=== PATIENT | male | born 1955 | race Caucasian/White ===

== ENCOUNTER 2016-12-11 19:04 | Emergency (ER) | payer BC ==
[~2016-12-11] VITALS: Ht 193 cm; Wt 120.2 kg
--- NOTE | 2016-12-11 19:56 | ED.ADGEN ---
Adult General HPI HPI Patient is a 61-year-old man, history of hypertension, who presents the emergency department with multiple complaints. Patient states that he awoke early this morning, with dental pain, that began his lower jaw, on the left side and radiate up to his left upper jaw, he states he's had pain like this before, does have poor dentition. He states however that previously he had dental pain like this, was told "it's when they diagnosed with high blood pressure". He states that later on during the day he began experiencing "twinging chest pains", and a feeling of fluttering with mild shortness of breath which prompted him to come to the ED for evaluation. He states the symptoms for last for a few moments at a time, and are worse if he moves quickly. States the pain did seem to radiate into his biceps, he states that pain is gone now as well. He denies any pain currently, any lightheadedness or dizziness, nausea vomiting, swelling extremities, recent travel or surgery, history of DVT or PE. He states is compliant with his blood pressure medications and did take aspirin before coming to the ED. Patient has a strong family history of cardiac disease, including MD and CABG performed on his father in his late 50s, and also in his brother, who had a heart attack at age 48. Patient does not smoke, states that he has occasional alcohol use, denies any drugs, injuries, similar symptoms. He'll be stress test performed about 15 years ago, and a stress test performed about 10 years ago, no issues at that time. 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 Review of Systems Review of Systems Constitutional: Denies fever or chills [] Eyes: Denies change in visual acuity, redness, or eye pain [] HENT: Denies nasal congestion or sore throat [] dental pain. Respiratory: Denies cough, mild shortness of breath associated with "twinging pain", and the chest. Cardiovascular: No additional information not addressed in HPI [] chest pain as stated along with palpitations. Currently resolved. Did radiate to the left upper arm. GI: Denies abdominal pain, nausea, vomiting, bloody stools or diarrhea [] : Denies dysuria or hematuria [] Musculoskeletal: Denies back pain or joint pain [] Integument: Denies rash or skin lesions [] Neurologic: Denies headache, focal weakness or sensory changes [] Endocrine: Denies polyuria or polydipsia [] Current Medications Current Medications Current Medications Medications (Trade) Dose Ordered Sig/Sarthak Start Time Stop Time Status Last Admin Dose Admin Fentanyl Citrate (Fentanyl 2ml Vial) 25 mcg PRN Q15MIN PRN 12/11/16 19:30 12/12/16 19:29 12/11/16 23:15 25 MCG Info (Do NOT chart on this entry -- for MONITORING) 1 each PRN DAILY PRN 12/11/16 20:30 12/13/16 20:29 Iohexol (Omnipaque 300 Mg/ml) 75 ml 1X ONCE 12/11/16 20:45 12/11/16 20:46 DC Nitroglycerin (Nitrostat) 0.4 mg 1X ONCE 12/11/16 20:00 12/11/16 20:01 DC 12/11/16 19:57 0.4 MG Penicillin V Potassium (Veetid) 500 mg 1X ONCE 12/11/16 23:30 12/11/16 23:31 DC 12/11/16 23:18 500 MG Allergies Allergies Allergies Coded Allergies Type Severity Reaction Last Updated Verified No Known Drug Allergies 12/11/16 No Physical Exam Physical Exam Constitutional: Well developed, well nourished, no acute distress, non-toxic appearance. [] HENT: Normocephalic, atraumatic, bilateral external ears normal, oropharynx moist, no oral exudates, nose normal. Patient with poor dentition, is missing 3 front teeth the lower jaw, noted to have dental decay, with tenderness to palpation of the lower front incisor, no abscess formation noted, gingivitis noted, with widespread periodontal disease, no discrete induration. No involvement of mucosal tongue or oropharynx. Eyes: PERRLA, EOMI, conjunctiva normal, no discharge. [] Neck: Normal range of motion, no tenderness, supple, no stridor. [] Cardiovascular:Heart rate regular rhythm, no murmur, S1, S2, rubs or gallops. [] Lungs & Thorax: Bilateral breath sounds clear to auscultation, no wheezing, rhonchi, rales. No chest wall crepitus or tenderness. [] Abdomen: Bowel sounds normal, soft, no tenderness, no masses, no pulsatile masses. [] Skin: Warm, dry, no erythema, no rash. [] Back: No tenderness, no CVA tenderness. [] Extremities: No tenderness, no cyanosis, no clubbing, ROM intact, no edema. Negative Homans sign. [] Neurologic: Alert and oriented X 3, normal motor function, normal sensory function, no focal deficits noted. [] Psychologic: Affect normal, judgement normal, mood normal. [] Current Patient Data Vital Signs Vital Signs Date Time Temp Pulse Resp B/P (MAP) Pulse Ox O2 Delivery O2 Flow Rate FiO2 12/11/16 23:15 16 12/11/16 21:07 67 99 12/11/16 20:11 98.7 Room Air 12/11/16 19:57 149/91 Lab Results Laboratory Tests Test 12/11/16 19:35 12/11/16 20:36 White Blood Count 7.8 x10^3/uL (4.0-11.0) Red Blood Count 5.40 x10^6/uL (4.30-5.70) Hemoglobin 16.5 g/dL (13.0-17.5) Hematocrit 48.7 % (39.0-53.0) Mean Corpuscular Volume 90 fL (79-100) Mean Corpuscular Hemoglobin 31 pg (25-35) Mean Corpuscular Hemoglobin Concent 34 g/dL (31-37) Red Cell Distribution Width 13.6 % (11.5-14.5) Platelet Count 185 x10^3/uL (140-400) Neutrophils (%) (Auto) 60 % (31-73) Lymphocytes (%) (Auto) 27 % (24-48) Monocytes (%) (Auto) 11 % (0-9) H Eosinophils (%) (Auto) 2 % (0-3) Basophils (%) (Auto) 1 % (0-3) Neutrophils # (Auto) 4.7 x10^3uL (1.8-7.7) Lymphocytes # (Auto) 2.1 x10^3/uL (1.0-4.8) Monocytes # (Auto) 0.9 x10^3/uL (0.0-1.1) Eosinophils # (Auto) 0.1 x10^3/uL (0.0-0.7) Basophils # (Auto) 0.1 x10^3/uL (0.0-0.2) D-Dimer (Isabel) 0.30 mg/L (0.00-0.50) Sodium Level 138 mmol/L (136-145) Potassium Level 4.3 mmol/L (3.5-5.1) Chloride Level 104 mmol/L (98-107) Carbon Dioxide Level 27 mmol/L (21-32) Anion Gap 7 (6-14) Blood Urea Nitrogen 14 mg/dL (8-26) Creatinine 0.9 mg/dL (0.7-1.3) Estimated GFR (Cockcroft-Gault) 85.8 BUN/Creatinine Ratio 16 (6-20) Glucose Level 152 mg/dL (70-99) H Calcium Level 9.6 mg/dL (8.5-10.1) Total Bilirubin 1.1 mg/dL (0.2-1.0) H Aspartate Amino Transferase (AST) 43 U/L (15-37) H Alanine Aminotransferase (ALT) 64 U/L (16-63) H Alkaline Phosphatase 81 U/L (46-116) Troponin I Quantitative < 0.017 ng/mL (0-0.055) FC-Anp-U-Type Natriuretic Peptide 76 pg/mL (0-124) Total Protein 8.1 g/dL (6.4-8.2) Albumin 3.8 g/dL (3.4-5.0) Albumin/Globulin Ratio 0.9 (1.0-1.7) L Lipase 141 U/L (73-393) Urine Opiates Screen Neg (NEG) Urine Methadone Screen Neg (NEG) Urine Barbiturates Neg (NEG) Urine Phencyclidine Screen Neg (NEG) Urine Amphetamine/Methamphetamine Neg (NEG) Urine Benzodiazepines Screen Neg (NEG) Urine Cocaine Screen Neg (NEG) Urine Cannabinoids Screen Neg (NEG) Urine Ethyl Alcohol Neg (NEG) EKG EKG EC: Sinus rhythm, heart rate 62 beats/minute, left axis deviation, QTC 396, CO of 258, QRS of 96, patient with contour abnormality is noted in the anterior leads, with one minimal elevation in lead V2, and leads V3, no other elevations depressions or other abnormalities does not meet STEMI criteria, identified. Abnormal ECG, no prior for comparison. As interpreted by me. On rhythm strip, patient noted to have occasional PVCs, also occasional runs of trigeminy, patient has not a history of these issues, repeat ECG was obtained. He has not expressed any chest pain currently. EC: Sinus rhythm, heart rate 84 beats are minute, occasional PVCs noted, patient with a QTC of 479, CO of 254, QRS of 94, otherwise no significant changes identified from previous ECG. As interpreted by me. Radiology/Procedures Radiology/Procedures Chest x-ray: One view: Normal cardiopulmonary silhouette, no infiltrates, no effusions, no pneumothorax, no soft tissue or bony abnormalities identified. As interpreted by me. [] Impressions: [place] [address] IMAGING REPORT Signed PATIENT: ALFRED ROBBINS ACCOUNT: [id number] : 1955 LOCATION: ER AGE: 61 SEX: M EXAM STATUS: PRE ER ORD. PHYSICIAN: VINAY PAIZ DO REASON: CP/SOB r/o PE PROCEDURE: CT ANGIOGRAPHY CHEST CTA Chest with contrast: Clinical History: CT Chest PE study, 7f ml omnipaque 300, SOB, Chest Pain, swelling of left side of jaw since this morning Shortness of breath. Axial helical images of the chest were obtained after the administration of 71 cc of IV Omnipaque 300 and timed appropriately for a pulmonary arterial study. Conventional axial reconstruction was performed in addition to coronal, sagittal and bilateral oblique MIP (maximum intensity projection). This study was ordered to detect possible pulmonary embolism. The pulmonary arteries are well-opacified without filling defects. The lungs and pleural margins are clear. There is no mediastinal or hilar lymphadenopathy. The thoracic aorta appears normal. Impression: 1. No evidence of pulmonary embolism. 2. No significant findings. PQRS Compliance Statement: One or more of the following individualized dose reduction techniques were utilized for this examination: 1. Automated exposure control 2. Adjustment of the mA and/or kV according to patient size 3. Use of iterative reconstruction technique Electronically signed by: Alfred Julien III, MD (12/11/2016 9:34 PM) [facility] DICTATED AND SIGNED BY: ALFRED JULIEN III, MD DATE: 12/11/162129 CC: VINAY PAIZ DO; MARIELA NGUYỄN DO ~ Course & Med Decision Making Course & Med Decision Making Pertinent Labs and Imaging studies reviewed. (See chart for details) Patient noted poor dentition as stated, however with complaints of chest pain, and arrhythmia noted on ECG leads, cardiac evaluation was initiated. Patient has a very strong family history of cardiac disease and has not had an evaluation for some time. Patient's laboratory studies were none concerning, however patient was noted to have runs of trigeminy occasionally on the monitor , and occasional PVCs. I did speak with Dr. Camp of cardiology, due to the patient's ECG G5, recommends transfer to [facility] for monitoring and cardiac evaluation, as more cardiology interventions are available at [facility]. Patient is agreeable with this plan. Written consent obtained. Patient continues to rest comfortably, currently sinus rhythm on the monitor. Patient also received a dose of penicillin in the emergency department, for his periodontal disease, although discrete abscess or other concerning signs were not identified as stated. I did speak with Dr. Cummings of internal medicine, patient accepted her service for transfer to the telemetry floor at [facility]. Patient awaiting transfer in stable condition resting comfortably. Final Impression Final Impression [] Problems: Dragon Disclaimer Dragon Disclaimer This electronic medical record was generated, in whole or in part, using a voice recognition dictation system. Departure: Impression: Primary Impression: Chest pain Additional Impressions: Palpitations Arrhythmia Pain, dental Disposition: 05 XFER OTHER Condition: IMPROVED VINAY PAIZ DO Dec 11, 2016 19:56
[2016-12-11] MEDS ORDERED: NITROGLYCERIN SUBLINGUAL 0.4 MG BOTTLE OF 25. SL ONE (20:00)
[2016-12-11 20:01] LABS: BASO # 0.1 x10^3/uL (0.0-0.2); BASO % 1 % (0-3); EOS # 0.1 x10^3/uL (0.0-0.7); EOS % 2 % (0-3); HEMATOCRIT 48.7 % (39.0-53.0); HEMOGLOBIN 16.5 g/dL (13.0-17.5); LYMPH # 2.1 x10^3/uL (1.0-4.8); LYMPH % 27 % (24-48); MEAN CORPUSCULAR HEMOGLOBIN 31 pg (25-35); MEAN CORPUSCULAR HGB CONC 34 g/dL (31-37); MEAN CORPUSCULAR VOLUME 90 fL (79-100); MONO # 0.9 x10^3/uL (0.0-1.1); MONO % 11 % (0-9); NEUT # 4.7 x10^3uL (1.8-7.7); NEUT % 60 % (31-73); PLATELET COUNT 185 x10^3/uL (140-400); RED CELL DISTRIBUTION WIDTH 13.6 % (11.5-14.5); WHITE BLOOD COUNT 7.8 x10^3/uL (4.0-11.0)
[2016-12-11] MEDS: fentaNYL PF 100 MCG/2 ML VIAL IV PRN ×3 (20:02→23:15)
[2016-12-11 20:20] LABS: ALBUMIN 3.8 g/dL (3.4-5.0); ALBUMIN/GLOBULIN RATIO 0.9 (1.0-1.7); CALCIUM 9.6 mg/dL (8.5-10.1); CREATININE 0.9 mg/dL (0.7-1.3); GFR 85.8; POTASSIUM 4.3 mmol/L (3.5-5.1); TOTAL BILIRUBIN 1.1 mg/dL (0.2-1.0); TOTAL PROTEIN 8.1 g/dL (6.4-8.2)
[2016-12-11] MEDS ORDERED: CONTRAST GIVEN MC PRN (20:30)
[2016-12-11] MEDS ORDERED: IOHEXOL 300 MG/ML 75 ML VIAL. IV ONE ×2 (20:30→20:45)
[2016-12-11 20:53] LABS: AMPHETAMINE/METHAMPHETAMINE NEG (NEG); BARBITURATES NEG (NEG); BENZODIAZEPINES NEG (NEG); CANNABINOIDS NEG (NEG); COCAINE NEG (NEG); METHADONE NEG (NEG); OPIATES NEG (NEG); PHENCYCLIDINE NEG (NEG)
--- NOTE | 2016-12-11 20:55 | EKG ---
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
[2016-12-11 21:07] VITALS: BP 158/102
--- NOTE | 2016-12-11 21:37 | RAD ---
CTA Chest with contrast: Clinical History: CT Chest PE study, 7f ml omnipaque 300, SOB, Chest Pain, swelling of left side of jaw since this morning Shortness of breath. Axial helical images of the chest were obtained after the administration of 71 cc of IV Omnipaque 300 and timed appropriately for a pulmonary arterial study. Conventional axial reconstruction was performed in addition to coronal, sagittal and bilateral oblique MIP (maximum intensity projection). This study was ordered to detect possible pulmonary embolism. The pulmonary arteries are well-opacified without filling defects. The lungs and pleural margins are clear. There is no mediastinal or hilar lymphadenopathy. The thoracic aorta appears normal. Impression: 1. No evidence of pulmonary embolism. 2. No significant findings. PQRS Compliance Statement: One or more of the following individualized dose reduction techniques were utilized for this examination: 1. Automated exposure control 2. Adjustment of the mA and/or kV according to patient size 3. Use of iterative reconstruction technique Electronically signed by: Haile Tong III, MD (12/11/2016 9:34 PM) [facility]
[2016-12-11] MEDS ORDERED: PENICILLIN V K 250 MG TABLET. PO ONE (23:30)
[2016-12-12] MEDS: fentaNYL PF 100 MCG/2 ML VIAL IV PRN (00:55)
--- NOTE | 2016-12-12 02:19 | EKG ---
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
--- NOTE | 2016-12-12 08:12 | RAD ---
Indication: Chest pain and swelling in left side of jaw. Technique: Upright portable chest radiograph was obtained. No comparison is available. Findings: The lungs are clear. The cardiopulmonary silhouette is within normal limits. There are degenerative changes in the AC joints. Left costophrenic angle is clipped. Impression: No active pulmonary disease.
== END 2016-12-12 01:10 | disposition short-term general hospital (02) ==
LOC: ER 19:04
DX: I49.9 Cardiac arrhythmia, unspecified (principal); K08.89 Other specified disorders of teeth and supporting structures; R07.89 Other chest pain
CPT/HCPCS: 36415; 71010; 71275; 80053; 80307; 83690; 83880; 84484; 85025; 85379; 93005; 96374; 96376; 99285; J3010; G0479

== ENCOUNTER 2017-11-25 01:08 | Emergency (ER) | payer OTHER, BC ==
[~2017-11-25] VITALS: Ht 193 cm; Wt 117.9 kg
[2017-11-25] MEDS ORDERED: ONDANSETRON PF 4 MG/2 ML VIAL. IV ONE (02:00)
[2017-11-25 02:15] LABS: BASO # 0.1 x10^3/uL (0.0-0.2); BASO % 1 % (0-3); EOS # 0.2 x10^3/uL (0.0-0.7); EOS % 2 % (0-3); HEMATOCRIT 41.5 % (39.0-53.0); HEMOGLOBIN 14.3 g/dL (13.0-17.5); LYMPH # 1.8 x10^3/uL (1.0-4.8); LYMPH % 20 % (24-48); MEAN CORPUSCULAR HEMOGLOBIN 31 pg (25-35); MEAN CORPUSCULAR HGB CONC 34 g/dL (31-37); MEAN CORPUSCULAR VOLUME 90 fL (79-100); MONO # 1.3 x10^3/uL (0.0-1.1); MONO % 14 % (0-9); NEUT % 63 % (31-73); PLATELET COUNT 208 x10^3/uL (140-400); RED BLOOD COUNT 4.63 x10^6/uL (4.30-5.70); RED CELL DISTRIBUTION WIDTH 13.1 % (11.5-14.5); WHITE BLOOD COUNT 9.4 x10^3/uL (4.0-11.0)
[2017-11-25 02:29] LABS: ALBUMIN 3.6 g/dL (3.4-5.0); ALBUMIN/GLOBULIN RATIO 0.8 (1.0-1.7); CALCIUM 9.9 mg/dL (8.5-10.1); GFR 75.7; POTASSIUM 4.7 mmol/L (3.5-5.1); TOTAL BILIRUBIN 1.2 mg/dL (0.2-1.0); TOTAL PROTEIN 7.9 g/dL (6.4-8.2)
[2017-11-25 03:00] VITALS: BP 177/89
[2017-11-25] MEDS ORDERED: MORPHINE SULFATE 4 MG/ML DISP.SYRIN. IV ONE (03:00)
--- NOTE | 2017-11-25 03:38 | ED.ADGEN ---
Past History Past Medical History: Diabetes, High Cholesterol, Hypertension Past Surgical History: Other Alcohol Use: Rarely Drug Use: None Adult General Chief Complaint Chief Complaint Postoperative right shoulder pain HPI HPI Patient is a 62-year-old male who underwent right shoulder rotator cuff repair yesterday morning at [facility] who presents with pearly old right shoulder pain. Reports brief sharp left-sided chest pain lasting 1-2 seconds at a time. No shortness of breath. No other acute symptoms or complaints. No drainage her bleeding from shoulder surgical bandages. Patient states he has been compliant with his sling and pain medication but his pain has been poorly controlled for the past several hours. Last took 5 mg of Percocet prior to ED arrival. Patient did not speak with his surgeon prior to coming to the emergency department and lives in the [facility]. ] Review of Systems Review of Systems Review symptoms as per history of present illness. All other systems were reviewed and found to be within normal limits, except as documented in this note. Current Medications Current Medications Current Medications Medications (Trade) Dose Ordered Sig/Sarthak Start Time Stop Time Status Last Admin Dose Admin Fentanyl Citrate (Fentanyl 2ml Vial) 75 mcg 1X ONCE 11/25/17 02:00 11/25/17 02:01 DC 11/25/17 02:08 75 MCG Morphine Sulfate (Morphine 4mg Syringe) 4 mg 1X ONCE 11/25/17 03:00 11/25/17 03:01 DC 11/25/17 03:07 4 MG Ondansetron HCl (Zofran) 4 mg 1X ONCE 11/25/17 02:00 11/25/17 02:01 DC 11/25/17 02:07 4 MG Allergies Allergies Allergies Coded Allergies Type Severity Reaction Last Updated Verified No Known Drug Allergies 12/11/16 No Physical Exam Physical Exam Constitutional: Well developed, well nourished, no acute distress, non-toxic appearance. [] HENT: Normocephalic, atraumatic, bilateral external ears normal, oropharynx moist, no oral exudates, nose normal. [] Eyes: PERRLA, EOMI, conjunctiva normal, no discharge. [] Neck: Normal range of motion, no tenderness, supple, no stridor. [] Cardiovascular:Heart rate regular rhythm, no murmur [] Lungs & Thorax: Bilateral breath sounds clear to auscultation [] Abdomen: Bowel sounds normal, soft, no tenderness. [] Skin: Warm, dry, no rash. [] Back: No tenderness, no CVA tenderness. [] Extremities: No tenderness, no cyanosis, no clubbing, ROM intact, no edema. [] Neurologic: Alert and oriented X 3, normal motor function, normal sensory function. [] Psychologic: Affect normal, judgement normal, mood normal. [] Current Patient Data Vital Signs Vital Signs Date Time Temp Pulse Resp B/P (MAP) Pulse Ox O2 Delivery O2 Flow Rate FiO2 11/25/17 03:15 18 98 Nasal Cannula 11/25/17 03:00 79 177/89 (118) 11/25/17 01:23 98.5 Lab Results Laboratory Tests Test 11/25/17 02:00 White Blood Count 9.4 x10^3/uL (4.0-11.0) Red Blood Count 4.63 x10^6/uL (4.30-5.70) Hemoglobin 14.3 g/dL (13.0-17.5) Hematocrit 41.5 % (39.0-53.0) Mean Corpuscular Volume 90 fL (79-100) Mean Corpuscular Hemoglobin 31 pg (25-35) Mean Corpuscular Hemoglobin Concent 34 g/dL (31-37) Red Cell Distribution Width 13.1 % (11.5-14.5) Platelet Count 208 x10^3/uL (140-400) Neutrophils (%) (Auto) 63 % (31-73) Lymphocytes (%) (Auto) 20 % (24-48) L Monocytes (%) (Auto) 14 % (0-9) H Eosinophils (%) (Auto) 2 % (0-3) Basophils (%) (Auto) 1 % (0-3) Neutrophils # (Auto) 6.0 x10^3uL (1.8-7.7) Lymphocytes # (Auto) 1.8 x10^3/uL (1.0-4.8) Monocytes # (Auto) 1.3 x10^3/uL (0.0-1.1) H Eosinophils # (Auto) 0.2 x10^3/uL (0.0-0.7) Basophils # (Auto) 0.1 x10^3/uL (0.0-0.2) Sodium Level 132 mmol/L (136-145) L Potassium Level 4.7 mmol/L (3.5-5.1) Chloride Level 98 mmol/L (98-107) Carbon Dioxide Level 27 mmol/L (21-32) Anion Gap 7 (6-14) Blood Urea Nitrogen 11 mg/dL (8-26) Creatinine 1.0 mg/dL (0.7-1.3) Estimated GFR (Cockcroft-Gault) 75.7 BUN/Creatinine Ratio 11 (6-20) Glucose Level 139 mg/dL (70-99) H Calcium Level 9.9 mg/dL (8.5-10.1) Total Bilirubin 1.2 mg/dL (0.2-1.0) H Aspartate Amino Transferase (AST) 47 U/L (15-37) H Alanine Aminotransferase (ALT) 70 U/L (16-63) H Alkaline Phosphatase 83 U/L (46-116) Troponin I Quantitative < 0.017 ng/mL (0-0.055) Total Protein 7.9 g/dL (6.4-8.2) Albumin 3.6 g/dL (3.4-5.0) Albumin/Globulin Ratio 0.8 (1.0-1.7) L EKG EKG EKG: Sinus rhythm, long NH interval, left axis deviation, abnormal T waves.[] Radiology/Procedures Radiology/Procedures [Chest x-ray: No definitive cardiac ds] Course & Med Decision Making Course & Med Decision Making Pertinent Labs and Imaging studies reviewed. (See chart for details) [Labs EKG, chest x-ray reviewed. Pain significantly improved with treatment. Recommend continued postoperative pain control and PCP follow-up] Final Impression Final Impression [1. Post-operative shoulder pain] Dragon Disclaimer Dragon Disclaimer This electronic medical record was generated, in whole or in part, using a voice recognition dictation system. MARTINA BARNES DO Nov 25, 2017 03:38
--- NOTE | 2017-11-25 07:41 | EKG ---
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
--- NOTE | 2017-11-25 08:10 | RAD ---
Portable chest, 11/25/2017: HISTORY: Chest pain, postop right shoulder surgery Comparison is made to a study from 12/11/2016. The heart size and pulmonary vascularity are normal. A faint nodular opacity projected over the left base is probably a nipple shadow. There is new elevation of the right hemidiaphragm with mild streaky right basilar opacity compatible with atelectasis. A component of subpulmonic pleural fluid cannot be excluded. There is no evidence of pneumothorax. Surgical skin clips overlie the right shoulder region. IMPRESSION: Moderate right basilar atelectasis. Subpulmonic pleural fluid is less likely. Follow-up PA and lateral chest radiographs may be useful for further evaluation, if clinically indicated. Electronically signed by: Boyd Alberts MD (11/25/2017 8:06 AM) [facility]
== END 2017-11-25 03:15 | disposition home or self-care (01) ==
LOC: ER 01:08
DX: G89.18 Other acute postprocedural pain (principal); M25.511 Pain in right shoulder; E11.9 Type 2 diabetes mellitus without complications; E78.00 Pure hypercholesterolemia, unspecified; I10 Essential (primary) hypertension
CPT/HCPCS: 36415; 71045; 80053; 84484; 85025; 93005; 96374; 96375; 99285; J2270; J2405; J3010